=== PATIENT | male | born 1990 | race Caucasian/White ===

== ENCOUNTER 2019-04-08 10:12 | Emergency (ER) | payer BC ==
[~2019-04-08] VITALS: Ht 170.2 cm; Wt 75.7 kg
[2019-04-08 10:19] VITALS: BP 114/68
[2019-04-08] MEDS ORDERED: LIDOCAINE 1%-EPI 1:100,000 20 ML VIAL ONE (10:29)
[2019-04-08] MEDS ORDERED: LIDOCAINE 1%-EPI 1:100,000 20 ML VIAL TP ONE (10:30)
--- NOTE | 2019-04-08 11:21 | NUR ---
LAC REPAIR DONE. PROVIDED W/ WOUND CARE. D/C HOME IN STABLE CONDITION.
== END 2019-04-08 11:43 | disposition home or self-care (01) ==
LOC: ER 10:17
DX: S81.012A Laceration without foreign body, left knee, initial encounter (principal); W26.8XXA Contact with other sharp object(s), not elsewhere classified, initial encounter; Y93.89 Activity, other specified; Y92.89 Other specified places as the place of occurrence of the external cause; Y99.8 Other external cause status
CPT/HCPCS: 12002; 99283; A6402; A6403; J3490